=== PATIENT | male | born 2000 | race Caucasian/White ===

== ENCOUNTER 2019-10-04 10:01 | Emergency (ER) | payer OTHER ==
[2019-10-04] MEDS ORDERED: Rabies Vaccine Human 2.5 UNITS VIAL ONE (11:22)
[2019-10-04] MEDS ORDERED: Albuterol Sulfate 1.25 MG/3 ML NEB ONE (14:52)
== END 2019-10-04 11:10 ==
LOC: BURERS 10:01
DX: S61.452A Open bite of left hand, initial encounter (principal); F90.9 Attention-deficit hyperactivity disorder, unspecified type; Z23 Encounter for immunization; W55.51XA Bitten by raccoon, initial encounter
CPT/HCPCS: 90375; 90376; 90471; 90675; 96372

== ENCOUNTER → 2019-10-07 | Day surgery (SDC) | payer OTHER ==
[~2019-10-07] MED LIST: Rabies Vaccine Human 2.5 UNITS VIAL ONE
[2019-10-07 12:15] VITALS: BP 127/76; TEMP 98.4
== END ==
LOC: BUR/OP 11:52
PROVIDERS: ATTEND Emergency Medicine
DX: Z29.14 Encounter for prophylactic rabies immune globulin (principal); W55.51XA Bitten by raccoon, initial encounter
CPT/HCPCS: 90675; 96372

== ENCOUNTER → 2019-10-11 | Day surgery (SDC) | payer OTHER ==
[2019-10-11 09:32] VITALS: BP 140/78; TEMP 97.5
== END ==
LOC: BUR/OP 09:10
PROVIDERS: ATTEND Emergency Medicine
DX: Z29.14 Encounter for prophylactic rabies immune globulin (principal); W55.51XA Bitten by raccoon, initial encounter
CPT/HCPCS: 90675; 96372

== ENCOUNTER → 2019-10-18 | Day surgery (SDC) | payer OTHER ==
[2019-10-18] MEDS: Rabies Vaccine Human 2.5 UNITS VIAL IM ONE (08:35)
[2019-10-18 08:52] VITALS: BP 111/62; TEMP 98.2
[2019-10-18 08:53] VITALS: BMI 28.5
== END ==
LOC: BUR/OP 08:03
PROVIDERS: ATTEND Emergency Medicine
DX: Z29.14 Encounter for prophylactic rabies immune globulin (principal); T14.8XXA Other injury of unspecified body region, initial encounter; W55.51XA Bitten by raccoon, initial encounter
CPT/HCPCS: 90675; 96372